=== PATIENT | female | born 1990 | race Caucasian/White ===

== ENCOUNTER 2023-12-08 11:36 | Outpatient (CLI) | payer MEDICAID, SELFPAY ==
--- NOTE | 2023-12-08 11:30 | CRLHL7_ITS ---
For Patients: As a result of the Cures Act, medical imaging exams and procedure reports are released immediately into your electronic medical record. You may view this report before your referring provider. If you have questions, please contact your health care provider. INDICATION: First trimester scan, establish dates. COMPARISON: None. TECHNIQUE: Real-time ray-scale imaging of the pelvis was performed. FINDINGS: Sonographic imaging demonstrates a single living intrauterine gestation. The embryo demonstrates a regular cardiac rate measuring 165 beats per minute. The embryo`s crown-rump length measurement of 1.7 cm corresponds to a gestational age of 8 weeks 0 days with a sonographic due date of 07/19/2024. There is a normal-appearing yolk sac. There are no gross abnormalities noted within the embryo at this early state of development. The gestational sac has a normal appearance. There is a 2.4 x 1.1 x 1.8 cm perigestational hemorrhage. The amount of fluid within the sac appears appropriate for gestational age. The cervix is closed. The myometrium appears normal. The ovaries are of normal size. Simple left ovarian cysts are present measuring up to 2.6 cm. There are no suspicious fluid collections noted in the cul-de-sac. IMPRESSION: Single living intrauterine with sonographic gestational age is 8 weeks 0 days and a sonographic due date of 07/19/2024. Subchorionic hemorrhage measures 2.4 x 1.1 x 1.8 cm. Dictated by Devan Lai MD @ 12/08/2023 12:37:30 PM (Electronically Signed)
== END 2023-12-08 11:37 | disposition home or self-care (01) ==
LOC: US 11:37
PROVIDERS: PCP Registered Nurse; Visit Provider Advanced Practice Midwife
DX: Z34.91 Encounter for supervision of normal pregnancy, unspecified, first trimester (principal); O20.9 Hemorrhage in early pregnancy, unspecified; Z3A.08 8 weeks gestation of pregnancy
CPT/HCPCS: 76817

== ENCOUNTER 2024-01-07 11:04 | Outpatient (CLI) | payer MEDICAID, SELFPAY | END 2024-01-07 11:05 | disposition home or self-care (01) | LOC: NFLDREF 01-11 14:44 | PROVIDERS: PCP Registered Nurse; Referring Provider Registered Nurse; Visit Provider Advanced Practice Midwife | DX: Z34.82 Encounter for supervision of other normal pregnancy, second trimester (principal); O34.81 Maternal care for other abnormalities of pelvic organs, first trimester; N83.202 Unspecified ovarian cyst, left side; Z3A.12 12 weeks gestation of pregnancy | CPT/HCPCS: 86592; 86703; 86704; 86706; 86762; 86787; 86803; 86850; 86900; 86901; 87086; 87340 ==

== ENCOUNTER 2024-01-12 09:16 | Outpatient (CLI) | payer MEDICAID, SELFPAY ==
--- NOTE | 2024-01-12 09:15 | CRLHL7_ITS ---
For Patients: As a result of the Cures Act, medical imaging exams and procedure reports are released immediately into your electronic medical record. You may view this report before your referring provider. If you have questions, please contact your health care provider. INDICATION: Left lower quadrant pain COMPARISON: 12/08/2023 TECHNIQUE: Real time ray scale imaging of the fetus was performed as well as color Doppler and spectral Doppler analysis of the left ovary. FINDINGS: Single living intrauterine is present. pole crown-rump length 7.1 cm, 13 weeks 2 days, 07/17/2024. heart rate 147 beats per minute. Left ovarian cysts are present measuring 1.7 x 1.0 x 1.3 cm and 2.6 x 2.0 x 2.5 cm. Left ovary in total measures 4.7 x 2.6 x 3.6 cm. No excess pelvic free fluid. Normal Doppler evaluation of the left ovary without torsion. IMPRESSION: Small left ovarian cysts. No torsion or excess pelvic free fluid. Normal intrauterine with sonographic gestational age 13 weeks 2 days and sonographic due date of 07/17/2024. Dictated by Devan Lai MD @ 01/12/2024 10:07:53 AM (Electronically Signed)
== END 2024-01-12 09:17 | disposition home or self-care (01) ==
LOC: US 09:17
PROVIDERS: PCP Registered Nurse; Visit Provider Advanced Practice Midwife
DX: O26.891 Other specified pregnancy related conditions, first trimester (principal); R10.32 Left lower quadrant pain; Z3A.13 13 weeks gestation of pregnancy
CPT/HCPCS: 76816

== ENCOUNTER 2024-03-04 08:08 | Outpatient (CLI) | payer MEDICAID, SELFPAY ==
--- NOTE | 2024-03-04 08:15 | CRLHL7_ITS ---
For Patients: As a result of the Century Cures Act, medical imaging exams and procedure reports are released immediately into your electronic medical record. You may view this report before your referring provider. If you have questions, please contact your health care provider. INDICATION: Evaluate anatomy. COMPARISON: 12/08/2023, 01/12/2024 TECHNIQUE: Real time ray scale imaging of the fetus was performed as well as color Doppler analysis of the umbilical vessels. FINDINGS: Sonographic imaging demonstrates a single living intrauterine gestation. Fetus demonstrates a regular cardiac rate of 138 beats per minute. Fetus has a variable position. The placenta lies anteriorly without evidence of placenta previa. As if the placenta located 6.2 cm from the internal cervical os. Amniotic fluid volume appears normal. Single deepest vertical pocket: 5.3 cm. The cervix is closed and measures 4.6 cm in length. The composite ultrasound gestational age is calculated at 21 weeks 0 days with an estimated sonographic due date of 07/15/2024. The estimated weight is 381 grams which lies at the 68th %. The following biometric measurements were obtained: Biparietal diameter: 4.9 cm/20 weeks 5 days 64th% Head circumference: 18.2 cm/20 weeks 4 days 51st% Abdominal circumference: 16.4 cm/21 weeks 3 days 76th% Femur length: 3.3 cm/20 weeks 1 day 33rd% The HC/AC ratio measures: 1.11 range (1.06-1.25) On anatomic survey, there is a normal appearance of the cerebral ventricles, cavum septi pellucidi, cisterna magna and cerebellum. The nose, lips, and facial profile appear normal. The cervical, thoracic and lumbar spine are not well visualized. There is a normal four-chamber heart view and the left and right ventricular outflow tracts appear normal. The diaphragm and stomach appear normal. The kidneys and bladder also appear normal. There is a normal three-vessel cord and cord insertion site. The four extremities appear normal. IMPRESSION: Concordance of clinical and sonographic dating. Incomplete visualization of the spine due to position. Remainder of the anatomic survey is unremarkable. Short-term follow-up recommended. Dictated by Devan Lai MD @ 03/04/2024 12:35:36 PM (Electronically Signed)
== END 2024-03-04 08:09 | disposition home or self-care (01) ==
LOC: US 08:09
PROVIDERS: PCP Registered Nurse; Visit Provider Advanced Practice Midwife
DX: Z34.92 Encounter for supervision of normal pregnancy, unspecified, second trimester (principal); Z3A.21 21 weeks gestation of pregnancy
CPT/HCPCS: 76805

== ENCOUNTER 2024-03-16 11:04 | Outpatient (CLI) | payer MEDICAID, SELFPAY ==
--- NOTE | 2024-03-16 11:15 | CRLHL7_ITS ---
For Patients: As a result of the Century Cures Act, medical imaging exams and procedure reports are released immediately into your electronic medical record. You may view this report before your referring provider. If you have questions, please contact your health care provider. INDICATION: Missing views of spine COMPARISON: 03.04.24 TECHNIQUE: Real time ray scale imaging of the fetus was performed. FINDINGS: heart rate 138 beats per minute. Vertex position. Normal spine. Right renal pelvis 3.2 mm and the left renal pelvis measures 3.7 mm, considered normal. IMPRESSION: Normal spine. Dictated by Devan Lai MD @ 03/16/2024 12:02:13 PM (Electronically Signed)
== END 2024-03-16 11:05 | disposition home or self-care (01) ==
LOC: US 11:05
PROVIDERS: PCP Registered Nurse; Visit Provider Advanced Practice Midwife
DX: O35.FXX0 Maternal care for other (suspected) fetal abnormality and damage, fetal musculoskeletal anomalies of trunk, not applicable or unspecified (principal)
CPT/HCPCS: 76816

== ENCOUNTER 2024-04-27 08:14 | Outpatient (CLI) | payer MEDICAID, SELFPAY | END 2024-04-27 08:15 | disposition home or self-care (01) | LOC: NFLDREF 04-30 11:34 | PROVIDERS: PCP Registered Nurse; Referring Provider Registered Nurse; Visit Provider Advanced Practice Midwife | DX: Z34.93 Encounter for supervision of normal pregnancy, unspecified, third trimester (principal); Z3A.28 28 weeks gestation of pregnancy | CPT/HCPCS: 86592 ==

== ENCOUNTER 2024-06-22 10:54 | Outpatient (CLI) | payer MEDICAID, SELFPAY | END 2024-06-22 10:55 | disposition home or self-care (01) | LOC: NFLDREF 06-26 03:10 | PROVIDERS: PCP Registered Nurse; Referring Provider Registered Nurse; Visit Provider Advanced Practice Midwife | DX: Z34.83 Encounter for supervision of other normal pregnancy, third trimester (principal); Z3A.36 36 weeks gestation of pregnancy | CPT/HCPCS: 87081; 87653 ==

== ENCOUNTER 2024-07-16 20:30 | Inpatient (IN) | payer MEDICAID, SELFPAY ==
[2024-07-16] VITALS (13 sets, daily range): BP systolic 110–118; BP diastolic 64–72; PULSE 74–91; RESP 16–19; TEMP 36.6–37; O2SAT 80–100; BMI 26.6
[2024-07-16 20:40] LABS: Amnisure Rom* POSITIVE
[2024-07-16 21:25] LABS: Basophils Absolute Auto 0.03 K/uL (0.00-0.30); Basophils Percent Auto 0.3 % (0.0-3.0); Eosinophils Absolute Auto 0.09 K/uL (0.00-0.50); Immature Granulocytes Abs Auto 0.02 K/uL (0.00-0.30); Immature Granulocytes Pct Auto 0.2 %; Lymphocytes Absolute Auto 2.03 K/uL (0.90-2.90); Lymphocytes Percent Auto 21.6 % (20-44); Mean Corpuscular HGB Conc 34 gm/dL (32-36); Mean Corpuscular Hemoglobin 33 pg (26-34); Mean Corpuscular Volume 96 fL (80-100); Monocytes Percent Auto 7.9 % (0.0-11.0); Neutrophils Absolute Auto 6.48 K/uL (1.7-7.0); Platelet Count* 211 K/uL (140-440); RDW Coefficient of Variation % 12.7 % (11.5-15.5); Red Blood Count 3.33 m/uL (4.00-5.20); White Blood Count* 9.39 K/uL (4.50-11.00)
[2024-07-16 21:28] LABS: Slide Review Reflex No
--- NOTE | 2024-07-16 21:30 | W.PM.LDBA ---
Documented by User: Maureen Robin 07/16/24 22:46 Subjective History of Present Illness Time Seen by Provider: 21:31 Date Seen: 07/16/24 Narrative: Patient is being admitted to Labor and Delivery for SROM. She is a 33 year old at 39w 4days weeks gestation. Her full history and physical was dictated by Tia Parmar CNM on 06/29/24. Please see this for details. Joann reports SROM tonight at about 1830 at home, noticed fluid begin leaking, which remained constant. Fluid was clear, denies bleeding. She was not experiencing contractions at that time, or anytime throughout the day. She presented to the unit with fluid continuing to leak. AmniSure was positive. She is rocking on the birthing ball, marcus every 2-4 minutes, reporting they are becoming a bit more uncomfortable. Discussed options for expectant management and augmentation along with pain management options. Patient prefers expectant management at this point, with plans for an epidural when she is ready. She is accompanied by her partner, Lorenzo, who is at the bedside and supportive. Specific Issues/Plans : Lorenzo H&P done by Tia Parmar CNM on 06/29/2024 # Anxiety Managed well with Zoloft 100 mg Does not see therapist # Thyroid nodule, benign TSH done just prior to was WNL, no monitoring needed during # Alopecia Was doing steroid injections prior to , was recommended to stop during # Borderline low platelets Plts 158 at 28 weeks, consider full CBC at 34 weeks Repeat at 34 weeks: 185 TDAp: 05/12/24 RSV vaccine: 06/22/24 OB - Problem Based A/P Additional Plan (1) PROM with onset of labor within 24 hours of rupture: Status: Acute (2) 39 weeks gestation of : Status: Acute (3) Anxiety: Status: Chronic Plan ASSESSMENT:?? 33 at 39 weeks 4 days gestation?? complicated by:??anxiety Labor type: Spontaneous, Early labor?? Category 1 FHR pattern.??? Labor complicated by: ??No complications at this time GBS negative? PLAN:?? 1. Routine intrapartum cares as ordered. Continue with expectant management?? 2. Monitoring per policy, intermittent?? 3. Planning unmedicated . Candidate for analgesia of choice, is thinking epidural. 4. Patient encouraged to reposition and ambulate to promote physiologic labor and .?? 5. Anticipate ? Delivery/Labor/Induction Plan Plan: expectant management OB Result Labs Blood Type: O (+) positive Rubella: immune RPR/VDLR: nonreactive GBS Status: negative HBsAG: negative OB Exam Physical Exam Vital signs: Temp Pulse Resp BP 98.6 F 83 16 110/67 07/16/24 20:26 07/16/24 20:11 07/16/24 20:26 07/16/24 20:11 Narrative: Vital signs reviewed by provider General Appearance:? Alert, oriented. No acute distress? HEENT Exam:? Grossly normal.? Chest/Respiratory Exam: Normal chest wall and respirations.?? Cardiovascular: Regular rate and rhythm, well perfused. Musculoskeletal Exam: Back is straight and non-tender, full ROM of upper and lower extremities.? Abdominal: Gravid, contractions present Skin: no rash or abnormalities? Neurologic Exam: Normal gait and speech, no tremor.? Psychiatric Exam: Alert and oriented, appropriate affect.? Detailed Labor and Delivery Exam Patient Gravid: Yes Dilation (cm): 3 Effacement (%): 50 Cervix position: posterior Contraction Frequency: 2-4 min. Contraction duration (sec): 90 Tachysystole: No Fetus (Single) Station: -2 Amniotic Membrane Status: SROM Amniotic Membrane Fluid Description: Clear Heart Rate Baseline: 130 Monitor Accelerations: Present Monitor Decelerations: None [employer] Supervisor Variability: Marked (>25) Documented by User: Lucy Richards CNM 07/17/24 03:24 Subjective History of Present Illness Narrative: Joann is being admitted to Labor and Delivery for SROM. She is a 33 year old at 39w 4days weeks gestation. Her full history and physical was dictated by Tia Parmar CNM on 06/29/24. Please see this for details. Joann reports SROM tonight at about 1830 at home, noticed fluid begin leaking, which remained constant. Fluid was clear, denies bleeding. She was not experiencing contractions at that time, or anytime throughout the day. She presented to the unit with fluid continuing to leak. AmniSure was positive. She is rocking on the birthing ball, marcus every 2-4 minutes, reporting they are becoming a bit more uncomfortable. She is accompanied by her partner, Lorenzo, who is at the bedside and supportive. Specific Issues/Plans : Lorenzo H&P done by Tia Parmar CNM on 06/29/2024 # Anxiety Managed well with Zoloft 100 mg Does not see therapist # Thyroid nodule, benign TSH done just prior to was WNL, no monitoring needed during # Alopecia Was doing steroid injections prior to , was recommended to stop during # Borderline low platelets Plts 158 at 28 weeks, consider full CBC at 34 weeks Repeat at 34 weeks: 185 TDAp: 05/12/24 RSV vaccine: 06/22/24 OB - Problem Based A/P Additional Plan (1) PROM with onset of labor within 24 hours of rupture: Status: Acute (2) 39 weeks gestation of : Status: Acute (3) Anxiety: Status: Chronic Plan ASSESSMENT:?? 33 yo at 39 weeks 4 days gestation?? complicated by:??anxiety Labor type: Spontaneous, Early labor?? Category 1 FHR pattern.??? Labor complicated by: No complications at this time GBS negative? PLAN:?? 1. Routine intrapartum cares as ordered. Continue with expectant management at this time. Discussed options for expectant management and augmentation along with pain management options. Patient prefers expectant management at this point, with plans for an epidural when she is ready. 2. Monitoring per policy, intermittent?? 3. Planning unmedicated . Candidate for analgesia of choice, is thinking epidural. 4. Patient encouraged to reposition and ambulate to promote physiologic labor and .?? 5. Anticipate ? OB Exam Physical Exam Narrative: Vital signs reviewed by provider General Appearance:? Alert, oriented. No acute distress? HEENT Exam:? Grossly normal.? Chest/Respiratory Exam: Normal chest wall and respirations.?? Cardiovascular: Regular rate and rhythm, well perfused. Musculoskeletal Exam: Back is straight and non-tender, full ROM of upper and lower extremities.? Abdominal: Gravid, contractions present; vertex by leopolds Skin: no rash or abnormalities? Neurologic Exam: Normal gait and speech, no tremor.? Psychiatric Exam: Alert and oriented, appropriate affect. Cervix: 3 cm/50%/-2 station/vertex per RN
[2024-07-16] MEDS: LACTATED RINGERS 1000 ML 1,000 ML 1100 ML IV (23:14)
[2024-07-17] VITALS (56 sets, daily range): BP systolic 86–133; BP diastolic 49–85; PULSE 65–107; RESP 16–20; TEMP 36.7–37.2; O2SAT 91–100
[2024-07-17] MEDS: BUPIVACAINE 0.25% PF 10 ML 10 ML ML EPIDURAL
[2024-07-17] MEDS: ROPIVACAINE 0.2% 100 ml 100 ML 12 MG EPIDURAL
[2024-07-17] MEDS: CALCIUM CARBONATE 500 MG CHEW PO ×3 (00:04→11:07)
--- NOTE | 2024-07-17 00:05 | PM.ANBPRC ---
[facility] Medical History (Updated 07/06/24 @ 15:12 by Maureen Robin) Alopecia areata ?L63.9 - Alopecia areata, unspecified (ICD-10) Back pain ?M54.9 - Dorsalgia, unspecified (ICD-10) History of vaginal delivery Surgical History Hx of tonsillectomy ?Z90.89 - Acquired absence of other organs (ICD-10) History of ankle surgery ?Z98.890 - Other specified postprocedural states (ICD-10) Family History Grandmother Breast cancer, Onset Age: 60 Social History Narrative: SOCIAL Education: Some college Work: Serving/Bartending a few nights a week Partner: Lorenzo, Production supervision for [employer] Lives with: Lorenzo, and son Titus (4.5 yo) Pets: Two dogs Abuse: Denies past/present Special Diet: Denies Ok with a blood transfusion: yes Culture or latter-day beliefs: denies RISK FACTORS Exercise Times/wk: Not routinely; active lifestyle with walks and biking with son Hx of Depression and/or Anxiety/other mood disorder: Anxiety, no therapist Seat Belt Use: Routinely Smoking: Denies past/present Alcohol/day: Denies while , over 05 of November but none since Caffeine: Coffee, daily 1-2 cups Drug Use: Denies past/present; Hx of remote THC Chicken Pox: Yes as a child MRSA: Denies What is your current living situation?: I presently have a place to live Problems where you live: no known problems In the past 12 months, utilities in danger of being shut off: no In past 12 months, lack of transportation kept you from medical appts, meetings, work, or getting things needed for daily living: no In the past 12 mos, have been you worried that your food would run out before you had money to buy more?: never true In the past 12 mos, the food you bought just didn't last and you didn't have money to buy more?: never true Smoking Status: Never smoker How often does anyone, including family, friends and others, physically hurt you: never How often does anyone, including family, friends and others, insult or talk down to you: never How often does anyone, including family, friends and others, threaten you with harm: never How often does anyone, including family, friends and others, scream or curse at you: never Meds Home Medications and Allergies Home Medications ?Medication ?Instructions ?Recorded ?Confirmed ?Type docosahexaenoic acid 200 mg mg PO 12/08/23 07/13/24 History capsule ( DHA) sertraline 100 mg tablet 100 mg PO HS 12/08/23 07/16/24 History calcium carbonate (Tums) 200 mg PO TID 02/17/24 07/16/24 History famotidine 20 mg tablet (Pepcid AC) 20 mg PO QDAY 03/30/24 07/16/24 History Allergies Allergy/AdvReac Type Severity Reaction Status Date / Time No Known Drug Allergies Allergy Verified 07/13/24 08:56 Results Labs Labs: Laboratory Results - last 24 hr 07/16/24 07/16/24 20:26 21:11 WBC 9.39 RBC 3.33 L Hgb 11.0 L Hct 32.0 L MCV 96 MCH 33 MCHC 34 RDW Coeff of Eva 12.7 Plt Count 211 Neut % (Auto) 69.0 Lymph % (Auto) 21.6 [place] % (Auto) 7.9 Eos % (Auto) 1.0 Baso % (Auto) 0.3 Neut # (Auto) 6.48 Lymph # (Auto) 2.03 [place] # (Auto) 0.70 Eos # (Auto) 0.09 Baso # (Auto) 0.03 Abs Immat Gran (auto) 0.02 Imm/Tot Granulo (auto) 0.2 Membrane Rupture POSITIVE Blood Type O Positive Antibody Screen NEGATIVE Vital Signs Vital Signs: Last Vital Signs Temp 97.9 F 07/16/24 23:11 Pulse 101 H 07/17/24 00:04 Resp 19 07/16/24 23:11 BP 117/56 L 07/17/24 00:04 Pulse Ox 100 07/17/24 00:04 Weight: 77.247 kg Height: 170.18 cm Anesthesia Procedures Epidural Insertion Patient Location: OB Start Time: 23:35 Stop Time: 00:05 Start Date: 07/16/24 Stop Date: 07/17/24 Reason for Block: procedure for pain Patient Position: sitting Performed By: Edd Scott Preanesthetic Checklist: IV checked, risks and benefits discussed, monitors and equipment checked, pre-op evaluation, timeout performed and anesthesia consent Prep: chlorhexidine gluconate Monitoring: blood pressure monitoring, continuous pulse oximetry and heart rate Approach: midline Vertebral Space: lumbar (1-5) Epidural Technique: RAND saline Needle Type: Tuohy needle Injection Technique: continuous catheter Needle gauge: 17 Needle Length (cm): 10 cm Needle Insertion Depth (cm): 6 Catheter Gauge: 19 Catheter Type: multi-orifice Catheter at skin depth (cm): 12 Test Dose Result: negative and lidocaine 1.5% with epinephrine 1 to 200,000
[2024-07-17] MEDS: LACTATED RINGERS 1000 ML 1,000 ML 1100 ML IV (00:10)
[2024-07-17] MEDS: PHENYLEPHRINE 100 MCG/ML SYRINGE IVP ×2 (00:19→00:25)
[2024-07-17] MEDS: ONDANSETRON 2 MG/ML inj 4 MG IV ×2 (02:10→06:56)
[2024-07-17] MEDS: OXYTOCIN 30 unit/500 ML in NS 30 UNIT/500 ML BAG 300 UNIT IVPB (02:45)
--- NOTE | 2024-07-17 02:57 | W.PM.VAGDE_ITS ---
Documented by User: Maureen Robin 07/17/24 03:20 OB Procedure Vag Delivery Mother Details Mother Details: The patient is a 33 year-old, 2, Para 2, admitted on 07/16/24 at 39.4 weeks gestation. : 2 Para: 2 Weeks Gestation: 39.5 Admission Date: 07/16/24 Additional Details Amniotic Membrane Status: SROM Amniotic Membrane Rupture Date: 07/16/24 Amniotic Membrane Rupture Time: 18:30 Amniotic Membrane Fluid Description: Clear Analgesia/Anesthesia Type: Epidural Waterbirth: No Pitcoin: Yes (AMTSL) Intrapartal Events: None Labor Onset: 23:00 Complete: 02:02 Pushin:18 Heart: heart tones during second stage were Category 2 during pushes, returning to baseline. Delivery Details Delivery Date: 07/17/24 Delivery Time: 02:33 Route of delivery: Gender: Female Infant Viability: Alive; Heart Rate Present Position at Delivery: OA Delivery Details: Patient was admitted for early labor and progressed normally. SROM noted at 1830 with clear fluid. Patient labored with epidural. Patient was complete at 0202 and pushing at 0218. of a viable female at 0233 in right tilt on the bed. Vertex delivered OA. No nuchal cord or shoulder. Body delivered easily and without incident. Infant passed to mothers abdomen with a vigorous cry. Cord was clamped and cut at > 5 minutes. APGARS were 8 at one minute and 9 at five minutes respectively. Mouth was bulb suctioned. Intact placenta with a 3 vessel cord delivered spontaneously at 0246. Fundus firm. Shallow right labial abrasion identified, repair not indicated. QBL 550 cc. Mother and baby stable; mother plans to breastfeed. weight pending. 1 Minute Interval Total Score: 8 5 Minute Interval Total Score: 9 Additional Details Shoulder Dystocia: No Placenta Delivery Time: 02:46 Placental Delivery Description: Spontaneous Procedure Done: Global Blood Loss: 550 Laceration: Labial (Shallow right, not repaired) Blood Loss Measurement Type: QBL Bakri Used: No Sponge/Need Count Correct: Yes Cord Vessel Description: 3 Vessels Event Summary Status: Mother and infant were stable after delivery. Disposition: floor Documented by User: Lucy Richards CNM 07/17/24 03:22 OB Procedure Vag Delivery Delivery Details Delivery Details: Patient was admitted for and progressed [normally/with augmentation]. [AROM/SROM] noted at [] with clear fluid. Patient was complete at [] and pushing at []. of a viable [fe]male at [] in [position] [in the tub]. Vertex delivered OA. No nuchal cord or shoulder. Body delivered easily and without in cident. Infant passed to mothers abdomen with a vigorous cry. Cord was clamped and cut at > 5 minutes. APGARS were [] at one minute and [] at five minutes respectively. Mouth was bulb suctioned. Intact placenta with a 3 vessel cord delivered spontaneously at []. Fundus firm. [1st/2nd degree] identified and repaired in typical fashion. QBL [] cc. Mother and baby stable; mother plans to breastfeed. Infant weight pending.
[2024-07-17] MEDS: IBUPROFEN 600 MG TABLET PO ×3 (06:30→21:30)
[2024-07-17] MEDS: SODIUM CHLORIDE 0.9 % (FLUSH) 10 ML SYRINGE IVF (06:56)
[2024-07-17] MEDS: DOCUSATE SODIUM 100 MG CAPSULE PO (11:08)
--- NOTE | 2024-07-17 11:21 | PM.ANPOST ---
Post Anesthesia Note Post Anesthesia Note Patient seen: Inpatient Respiratory Status: adequate Cardiovascular Status: adequate Mental Status: baseline Pain: adequate Temp: baseline Anesthetic awareness: N/A Complications: none Follow care: none
[2024-07-17] MEDS: ACETAMINOPHEN 500 MG TABLET 1000 MG PO (18:22)
[2024-07-17] MEDS: SERTRALINE 100 MG TABLET PO (21:31)
[2024-07-18 04:11] VITALS: BP 107/63; PULSE 79; RESP 16; TEMP 36.6; O2SAT 99
[2024-07-18 07:59] VITALS: BP 106/72; PULSE 68; RESP 18; TEMP 36.7; O2SAT 100
[2024-07-18] MEDS: DOCUSATE SODIUM 100 MG CAPSULE PO (08:19)
--- NOTE | 2024-07-18 09:36 | PM.OBDSVD1 ---
DS: Providers Provider Date Seen: 07/18/24 Date of admission: 07/16/24 20:30 Primary care physician: Yoon Gonzalez CNP Admitting Clinician: Lucy Richards CNM Attending Physician on discharge: Mindy Parmar CNM Date of Discharge: 07/18/24 DS: Diagnosis Discharge Diagnosis (1) care and examination of lactating mother: Status: Acute Exam Narrative: Exam Narrative: VSS, afebrile GENERAL APPEARANCE: ?normal affect, alert, no distress MOOD: ?appropriate HEENT: normocephalic, neck supple, full ROM CHEST: ?Symmetrical chest wall movement. ?Normal respiratory effort. ?Clear to auscultation HEART: ?regular rate and rhythm ABDOMEN: ?soft, non-tender. Uterine fundus is firm, at Umbilicus, Midline and is appropriate for the stage of recovery. ?Bowel sounds present. PERINEUM: ?mild edema of the perineum, there is a labial laceration that is healing well. EXTREMITIES: ?normal and no edema Const: Vital Signs, click to edit/add: Vital Signs - 24 hr 07/17/24 10:43 07/17/24 14:58 07/17/24 19:53 Temperature 98.1 F 98.6 F 98.9 F Pulse Rate [Blood Pressure Cuff] 65 69 69 Respiratory Rate 20 16 16 Blood Pressure [Ri ght Arm] 97/68 98/61 103/68 Pulse Oximetry 97 98 98 Oxygen Delivery Me thod Room Air Room Air Room Air 07/18/24 04:11 07/18/24 07:59 Temperature 97.8 F 98.0 F Pulse Rate [Blood Pressure Cuff] 79 68 Respiratory Rate 16 18 Blood Pressure [Ri ght Arm] 107/63 106/72 Pulse Oximetry 99 100 Oxygen Delivery Me thod Room Air Room Air Documenting provider has reviewed patient's vital signs: yes OB - DS: Summary Hospital Course Hospital Course: Joann is a 33 y.o. who was admitted to L & D for labor. ?She had an uncomplicated NVD.?The patient feels well. ?The pain is well controlled with current medications. ?She has no new complaints. ?She is breast feeding and reports things are going well.? the patient has done well.? Vitals have been stable.? She has remained afebrile.? Has a good appetite, is tolerating a general diet. ?She is voiding without difficulty.? She is passing gas and has not had a bowel movement.? She is ambulating and denies any dizziness.? Has Small amount of rubra lochia. ?She is planning nothing for prevention. Peripartum Data delivery method: Vaginal Laceration description: Labial complications: none [place] Infant Gender: Female Infant Discharge Plan: Home Status at Discharge Functional status at discharge: independent ambulation Overall status at discharge: patient is progressing back to baseline Time Spent with Patient Time attestation: Total time spent providing and/or coordinating discharge services: Time spent: Less than 30 minutes Discharge Plan Discharge Disposition: Home, Self-Care Date of Admission: 07/16/24 20:30 Attending Provider on Discharge: Mindy Parmar Primary Care Provider: Yoon Gonzalez Condition: Stable Anticipated Discharge Date/Time: 07/18/24 12:00 Discharge Medications: New acetaminophen 500 mg Tablet 1,000 mg PO Q6H PRNQty: 0 0RF docusate sodium 100 mg Capsule 100 mg PO DAILY Qty: 90 0RF ibuprofen 600 mg Tablet 600 mg PO Q6H PRNQty: 60 0RF Continued DHA 200 mg capsule 200 mg PO DAILY sertraline 100 mg tablet 100 mg PO HS famotidine [Pepcid AC] 20 mg tablet 20 mg PO QDAY calcium carbonate [Tums] 200 mg calcium (500 mg) tablet,chewable 200 mg PO TID ondansetron HCl 4 mg tablet 4 mg PO Q8-12H PRN (Reason: nausea and vomiting) Qty: 60 1RF Discharge Orders: Discharge Order (Routine); Ordered 07/18/24 Ordered By: Mindy Parmar Patient Education: OB Over the Counter Medication Information, OB Vaginal/Breast Feeding Additional Instructions: Discharge instructions were reviewed with the patient including signs and symptoms of infection and home going medications Nothing vaginally for 6 weeks: no tampons or intercourse Off Work or School for 6 weeks 2-week visit: discuss infant feeding concerns, review control options and screen for anxiety/depression. 6-week visit for an annual exam. consultation services are available to all mothers and babies for the first year after delivery.? To make an appointment, please call [phone]. Activity Level: Activity as Tolerated Discharge Diet: Regular Follow Up Appointments: [facility] [Provider Group] Forms: [place] Info Instructions
[2024-07-18] MEDS: IBUPROFEN 600 MG TABLET PO (10:23)
[2024-07-18 17:45] LABS: Rapid Plasma Reagin (RPR) Non Reactive (Non Reactive)
== END 2024-07-18 11:59 | disposition home or self-care (01) | DRG 807 ==
LOC: OB OUT 20:48 → OB 20:48
PROVIDERS: Admitting Provider Advanced Practice Midwife; PCP Registered Nurse; Visit Provider Advanced Practice Midwife
DX: O42.02 Full-term premature rupture of membranes, onset of labor within 24 hours of rupture (principal); Z37.0 Single live birth; O99.344 Other mental disorders complicating childbirth; F41.9 Anxiety disorder, unspecified; Z3A.39 39 weeks gestation of pregnancy
CPT/HCPCS: 01967; 36415; 84112; 85025; 86592; 86850; 86900; 86901; A9270; J0665; J2371; J2405; J2795; J7120